=== PATIENT | male | born 1950 | race Caucasian/White ===

== ENCOUNTER → 2021-03-08 07:56 | Outpatient (CLI) | payer MEDICARE, OTHER ==
[2012-12-07 15:05] VITALS: BMI 30.4
--- NOTE | ~2021-03-08 | ST ---
PATIENT:CHUCHO AQUINO MEDICAL RECORD: [id number] SEX: M LOCATION:[facility] ORDER #: ADMISSION DATE: 03/08/21 AGE OF PATIENT: 70 REFERRING PHYSICIAN: INTERPRETING PHYSICIAN: MICKI LEWIS MD DATE OF SERVICE: 03/08/2021 FINDINGS: Gated is normal, normal wall motion, normal EF, calculated EF 71%. SPECT imaging: Short axis view: Short axis view shows a fixed defect along the inferior base without significant reversibility. This is confirmed in the horizontal axis with a fixed inferobasilar defect with no significant reversibility. Vertical axis: Vertical axis shows good uptake along the lateral wall and septum. FINAL IMPRESSION: 1. Normal gated, normal wall motion, normal EF 71%. 2. Abnormal SPECT imaging with a fixed defect along the inferior base with no significant reversibility. FINAL RECOMMENDATION: The patient's scan shows no evidence of active myocardial ischemia. LV function remains normal. Continued risk factor modification and medical management is recommended. TRANSINT:[id number] Voice Confirmation ID: [id number] DOCUMENT ID: [id number] MICKI LEWIS MD CC: [id number] DICTATION DATE: 03/08/21 1649 LEGAL ARCHIVIST: 03/09/21 1006 DEP CLI 03/08/21 [place] [id number] [place] [id number]
== END | disposition home or self-care (01) ==
LOC: D.HCCARDIO 07:56
PROVIDERS: ATTEND Internal Medicine Interventional Cardiology
DX: R07.9 Chest pain, unspecified (principal)